=== PATIENT | male | born 1975 | race Asian ===

== ENCOUNTER 2016-06-05 09:34 | Observation (INO) | payer MEDICAID, OTHER ==
[~2016-06-05] VITALS: Ht 172.7 cm; Wt 78.4 kg
[2016-06-05] MEDS ORDERED: ONDANSETRON 4 MG INJ IV STA (10:38)
[2016-06-05] MEDS ORDERED: SOD CHLORIDE 0.9% 1,000 ML IV STA (10:38)
[2016-06-05] MEDS ORDERED: KETOROLAC 30 MG INJ IV STA (10:38)
--- NOTE | 2016-06-05 11:01 | RADRPT ---
PROCEDURE: XR Chest AP portable CLINICAL INDICATION: Abdominal pain TECHNIQUE: An AP portable radiograph of the chest was submitted. COMPARISON: None. FINDINGS: Support Hardware: None Cardiovascular: The cardiovascular silhouette appears unremarkable. Lung Romano: The lung romano appear clear with no nodule, alveolar infiltrate, for a interstitial pr ominence evident. Pleural Spaces: No pneumothorax or pleural effusion is identified. Osseous Structures: The osseous structures appear intact. Soft Tissues: The soft tissues appear unremarkable. IMPRESSION: Unremarkable portable chest. Physician Radha Date Time Electronically viewed and signed by Vivien Perkins Physician on 06/05/2016 11:00 RH/
[2016-06-05] MEDS ORDERED: ASPIRIN (EC) 325 MG TAB PO ONE (11:30)
[2016-06-05 11:53] LABS: ALBUMIN 3.8 g/dl (3.3-4.9); CHLORIDE 104 mmol/L (97-110); POTASSIUM 3.5 mmol/L (3.5-5.1); SODIUM 143 mmol/L (135-144)
[2016-06-05 11:56] LABS: ALANINE AMINOTRANSFERASE 55 IU/L (13-69); ALBUMIN/GLOBULIN RATIO 1.15; ALKALINE PHOSPHATASE 103 IU/L (42-121); ANION GAP 21 (8-16); ASPARTATE AMINO TRANSFERASE 36 IU/L (15-46); BILIRUBIN,INDIRECT 0.5 mg/dl (0-1.1); BILIRUBIN,TOTAL 0.5 mg/dl (0.2-1.3); BLOOD UREA NITROGEN 12 mg/dl (7-20); CALCIUM 7.9 mg/dl (8.4-10.2); CARBON DIOXIDE 22 mmol/L (21-31); GLUCOSE 136 mg/dl (70-220); TOTAL PROTEIN 7.1 g/dl (6.1-8.1)
[2016-06-05 12:08] LABS: TROPONIN-I < 0.012 ng/ml (0.00-0.12)
[2016-06-05 12:13] LABS: EOSINOPHILS % 0.3 % (0.0-7.0); HEMATOCRIT 44.3 % (42.0-52.0); HEMOGLOBIN 16.2 g/dl (14.0-18.0); LYMPHOCYTES % 18.9 % (15.0-51.0); MEAN CORPUSCULAR HEMOGLOBIN 30.1 pg (29.0-33.0); MEAN CORPUSCULAR HGB CONC 36.6 g/dl (32.0-37.0); MEAN CORPUSCULAR VOLUME 82.3 fl (82.0-101.0); MEAN PLATELET VOLUME 9.8 fl (7.4-10.4); MONOCYTES % 8.8 % (0.0-11.0); PLATELET COUNT 417 10^3/UL (140-440); RED BLOOD COUNT 5.38 10^6/ul (4.70-6.10); RED CELL DISTRIBUTION WIDTH 12.2 % (11.5-14.5); UNCORRECTED WBC 11.7 10^3/ul (4.8-10.8); WHITE BLOOD COUNT 11.7 10^3/ul (4.8-10.8)
[2016-06-05 12:14] LABS: BASOPHILS % 0.3 % (0.0-2.0); EOSINOPHILS # 0.3 10^3/ul (0.0-0.5); LYMPHOCYTES # 2.2 10^3/ul (0.8-2.9); NEUTROPHIL # 8.3 10^3/ul (1.6-7.5)
[2016-06-05 12:15] LABS: BASOPHIL # 0.4 10^3/ul (0.0-0.1)
--- NOTE | 2016-06-05 12:40 | ERA ---
ER Documentation Chief Complaint Date/Time DATE: 06/05/16 TIME: 12:38 Chief Complaint pt bib self with c/o ap for a few days and nausea, "had flu last wk" HPI 41-year-old male presents the emergency department complaining of chest discomfort. Patient states he had a flu last week. His flu seems to have gotten better, but over the last for 5 days he has had a nonspecific Discomfort in the center part of his chest. It makes him nauseous but does not significantly radiate. Today got somewhat worsened to the lower part of his abdomen. He reports no fevers, chills, sputum production, hemoptysis. His pain is persisted and he came to the emergency department for evaluation. Currently reports the pain is mild to moderate in the center part of his chest. ROS All systems reviewed and are negative except as per history of present illness. Allergies Allergies: Coded Allergies: No Known Allergy (Unverified , 06/05/16) PMhx/Soc Medical and Surgical Hx: pt denies Medical Hx, pt denies Surgical Hx Hx Alcohol Use: Yes (OCCASIONALLY) Hx Substance Use: No Hx Tobacco Use: No Smoking Status: Never smoker FmHx Noncontributory for chief complaint Physical Exam Vitals Vital Signs Date Time Temp Pulse Resp B/P Pulse Ox O2 Delivery O2 Flow Rate FiO2 06/05/16 09:37 98.3 106 18 135/84 98 Physical Exam GENERAL: The patient is well developed and appropriate for usual state of health in no apparent distress HEENT: Pupils equal, round, and reactive to light. EOMI. There is no scleral icterus. NECK: C-spine is soft and supple, there is no meningismus. There is no cervical lymphadenopathy. LUNGS: Clear to auscultation bilaterally. There are no rales, wheezes or rhonchi. HEART: Regular rate and rhythm, no murmurs, clicks, rubs or gallops. ABDOMEN: Soft, non-tender, non-distended. There are bowel sounds in all four quadrants. No rebound or guarding. EXTREMITIES: There is no peripheral cyanosis or edema. No focal swelling or erythema. NEURO: The patient moves all four extremities with 5/5 strength. Cranial nerves II - XII are intact. Normal gait. Alert and oriented SKIN: There is no apparent rash or petechiae. HEME/LYMPHATIC: There is no evidence of excessive bruising or lymphedema. PSYCHIATRIC: The patient does not appear anxious or depressed. Result Diagram: 06/05/16 1125 06/05/16 1125 Results 24 hrs Laboratory Tests Test 06/05/16 11:25 Alanine Aminotransferase (ALT/SGPT) 55IU/L Albumin 3.8g/dl Albumin/Globulin Ratio 1.15 Alkaline Phosphatase 103IU/L Anion Gap 21 Aspartate Amino Transf (AST/SGOT) 36IU/L Basophils # 0.410^3/ul Basophils % 0.3% Blood Urea Nitrogen 12mg/dl Calcium Level 7.9mg/dl Carbon Dioxide Level 22mmol/L Chloride Level 104mmol/L Creatinine 0.80mg/dl Direct Bilirubin 0.00mg/dl Eosinophils # 0.310^3/ul Eosinophils % 0.3% Globulin 3.30g/dl Glucose Level 136mg/dl Hematocrit 44.3% Hemoglobin 16.2g/dl Indirect Bilirubin 0.5mg/dl Lipase 164U/L Lymphocytes # 2.210^3/ul Lymphocytes % 18.9% Mean Corpuscular Hemoglobin 30.1pg Mean Corpuscular Hemoglobin Concent 36.6g/dl Mean Corpuscular Volume 82.3fl Mean Platelet Volume 9.8fl Monocytes # 1.010^3/ul Monocytes % 8.8% Neutrophils # 8.310^3/ul Neutrophils % 71.0% Nucleated Red Blood Cells # 0.010^3/ul Nucleated Red Blood Cells % 0.0/100WBC Platelet Count 01660^3/UL Potassium Level 3.5mmol/L Red Blood Count 5.3810^6/ul Red Cell Distribution Width 12.2% Sodium Level 143mmol/L Total Bilirubin 0.5mg/dl Total Protein 7.1g/dl Troponin I < 0.012ng/ml White Blood Count 11.710^3/ul Current Medications Medications (Trade) Dose Ordered Sig/Farideh Route PRN Reason Start Time Stop Time Status Last Admin Dose Admin Sodium Chloride (NS) 1,000 ml @ 1,000 mls/hr Q1H STAT IV 06/05/16 10:38 06/05/16 11:37 DC 06/05/16 11:33 Ondansetron HCl (Zofran Inj) 4 mg ONCE STAT IV 06/05/16 10:38 06/05/16 10:40 DC 06/05/16 11:33 Ketorolac Tromethamine (Toradol) 30 mg ONCE STAT IV 06/05/16 10:38 06/05/16 10:40 DC 06/05/16 11:33 Aspirin (Ecotrin) 325 mg ONCE ONCE PO 06/05/16 11:30 06/05/16 11:31 DC 06/05/16 12:02 Procedures/MDM Patient was taken to a room, seen and evaluated. Comfort measures were initiated. Diagnostic tests were ordered and reviewed. 3 LEAD RHYTHM STRIP: Normal sinus rhythm without ectopy EK lead EKG reviewed by myself: Normal Sinus Rhythm Normal [place] and intervals T-wave inversions are noted in the inferolateral leads. Impression: Ischemic appearing EKG RADIOLOGY: reviewed with the radiologist CONSULTATION: hospitalist was notified for admission REEVALUATION: Patient is remained hemodynamically stable MEDICAL DECISION MAKING: Patient presents with chest pain of uncertain etiology. Differential diagnosis considered includes acute myocardial infarction , pulmonary embolism, as well as vascular and pulmonary concerns. I have reviewed the patients clinical risk factors, EKG, lab studies and imaging. At this time, the patient's EKG is markedly abnormal and he has multiple risk factors for ischemic heart disease. Patient will require admission to the hospital for observation and monitoring and ruling out of [place]. Departure Diagnosis: Primary Impression: Chest pain Additional Impressions: Hypertension Diabetes LILLIANA MENSAH Jun 05, 2016 12:40
[2016-06-05 12:49] LABS: ADD UMIC YES; URINE BILIRUBIN (Dip) NEGATIVE (NEGATIVE); URINE BLOOD (Dip) NEGATIVE (NEGATIVE); URINE COLOR LT. YELLOW (YELLOW); URINE GLUCOSE (Dip) NEGATIVE (NEGATIVE); URINE KETONES (Dip) NEGATIVE (NEGATIVE); URINE LEUKOCYTE ESTERASE (Dip) NEGATIVE (NEGATIVE); URINE NITRITE (Dip) NEGATIVE (NEGATIVE); URINE TOTAL PROTEIN (Dip) 1+ (NEGATIVE); URINE UROBILINOGEN (Dip) 1.0 E.U./dL (0.1-1.0)
[2016-06-05 13:10] LABS: URINE RBCS NONE SEEN /HPF (0)
[2016-06-05] MEDS ORDERED: DOCUSATE SODIUM 100 MG CAP PO PRN (14:00)
[2016-06-05] MEDS ORDERED: NACL 0.9% 3 ML SYG IV SCH (14:00)
[2016-06-05] MEDS ORDERED: morphine 2 MG INJ IV PRN (14:00)
[2016-06-05] MEDS ORDERED: LORAZEPAM 2 MG INJ IV PRN (14:00)
[2016-06-05] MEDS ORDERED: hydrALAzine 20 MG INJ IV PRN (14:00)
[2016-06-05] MEDS ORDERED: ONDANSETRON 4 MG INJ IV PRN (14:00)
[2016-06-05] MEDS ORDERED: ALBUTEROL/IPRATROPIUM (NEB) 3 ML AMP HHN PRN (14:00)
[2016-06-05] MEDS ORDERED: NITROGLYCERIN (SL) 0.4 MG TAB SL PRN (14:00)
[2016-06-05] MEDS ORDERED: ACETAMINOPHEN 325 MG TAB PO PRN (14:00)
[2016-06-05] MEDS ORDERED: NA PHOSPHATE/BIPHOS 133 ML ENEMA PR PRN (14:00)
[2016-06-05] MEDS ORDERED: HYDROCODONE/APAP (5/325) TAB PO PRN (14:00)
[2016-06-05] MEDS ORDERED: MAGNESIUM HYDROXIDE 30ML CUP PO PRN (14:00)
[2016-06-05 16:21] LABS: CREATINE KINASE 211 IU/L (23-200)
[2016-06-05 16:33] LABS: CK-MB 0.76 ng/ml (0.0-2.4)
[2016-06-05 16:40] LABS: TROPONIN-I < 0.012 ng/ml (0.00-0.12)
[2016-06-05] MEDS: SOD CHLORIDE 0.45% 1,000 ML IV SCH (19:23)
[2016-06-05] MEDS ORDERED: GLUCOSE GEL 15 GRAM TUBE PO PRN ×2 (20:00)
[2016-06-05] MEDS ORDERED: GLUCOSE GEL 15 GRAM TUBE BUCCAL PRN (20:00)
[2016-06-05] MEDS ORDERED: GLUCAGON 1 MG INJ IM PRN (20:00)
[2016-06-05] MEDS ORDERED: DEXTROSE 50% 50 ML SYRINGE IV PRN ×2 (20:00)
[2016-06-05 20:03] VITALS: TEMP 97.6
[2016-06-05 20:44] LABS: CREATINE KINASE 167 IU/L (23-200)
[2016-06-05 20:54] LABS: CK-MB 0.74 ng/ml (0.0-2.4)
[2016-06-05 20:56] LABS: TROPONIN-I < 0.012 ng/ml (0.00-0.12)
[2016-06-05 20:58] VITALS: PULSE 66
[2016-06-05 21:00] VITALS: BP 118/68; PULSE 72; RESP 20
[2016-06-05] MEDS: INSULIN ASPART [NOVOLOG] 3 ML PEN SC SCH (21:00)
[2016-06-05] MEDS ORDERED: LOSA50TA6 PO (21:12)
[2016-06-05] MEDS ORDERED: AMLO2.5T78 PO (21:13)
[2016-06-05] MEDS ORDERED: ATOR20TA38 PO (21:13)
[2016-06-05] MEDS ORDERED: LINA5TAB PO (21:15)
[2016-06-05 21:18] VITALS: Ht 172.7 cm; Wt 78.4 kg
[2016-06-05] MEDS: HEPARIN 5,000 UNIT/0.5 ML SYG SC SCH (22:25)
[2016-06-06] VITALS (11 sets, daily range): BP systolic 111–136; BP diastolic 66–80; PULSE 63–77; RESP 18–20
[2016-06-06] MEDS: ACCUCHECK AT 2AM (Patients on SS coverage) XX SCH (02:00)
[2016-06-06] MEDS: SOD CHLORIDE 0.45% 1,000 ML IV SCH ×3 (03:18→23:24)
--- NOTE | 2016-06-06 03:40 | HP ---
DATE OF ADMISSION: 06/05/2016 CHIEF COMPLAINT: Chest pain. HISTORY OF PRESENT ILLNESS: A 41-year-old male with past medical history of hypertension and type 2 diabetes who has been having chest pain that began on Tuesday, so 6 days ago, about 2/10 in intensit y, nonradiating. Then it got worse over the week. Yesterday it became more severe, about 8/10 in i ntensity, again nonradiating. He had some nausea symptoms as well but no vomiting, no upper or lowe r GI bleeding, no fevers or chills. No headaches, dizziness, or loss of consciousness. No abdomina l pain. No shortness of breath. He became concerned and decided to come into the ER today. When priscilla liu came in, he had an EKG performed that showed some T-wave inversions in the inferior lateral leads and some LVH noted on the EKG. Troponin was negative, however. Apparently he has never had this ch est pain before. Again, as stated above, he apparently had smoking history. Actually, the patient denies any current smoking. He smoked when he was from age 16 to 19. PAST MEDICAL HISTORY: Stated above. ALLERGIES: NO KNOWN DRUG ALLERGIES. HOME MEDICATIONS: Unknown. PAST SURGICAL HISTORY: None. FAMILY HISTORY: Mother has hypertension. SOCIAL HISTORY: Again, social drinker but negative for current smoking or IV drug abuse. PHYSICAL EXAMINATION: VITAL SIGNS: T-max 98.3, pulse 106, respirations 18, blood pressure 135/84, saturating at 98% on ro om air. GENERAL: The patient is lying in bed, answering questions appropriately. No acute distress. HEENT: Pupils equal, round, reactive to light. Extraocular muscles intact. NECK: Supple, no thyromegaly. LUNGS: Clear to auscultation bilaterally. CARDIOVASCULAR: S1, S2 heard. No rubs or gallops. ABDOMEN: Soft, nontender, nondistended. Normal bowel sounds. MUSCULOSKELETAL: No lower extremity edema bilaterally. NEUROLOGIC: No focal deficits. LABORATORIES: WBC 11.7. The rest of the CBC is normal. Comprehensive metabolic panel is normal. Creatine kinase is a little high at 211. Troponin is negative x1. Lipase is normal as well. UA is negative nitrites, negative leukocyte esterase. Chest x-ray was unremarkable. ASSESSMENT AND PLAN: This is a 41-year-old male coming in with chest pain symptoms for the last 5 d ays, getting progressively worse, rule out acute coronary syndrome. 1. Chest pain. Again, his EKG did show some T-wave inversions in the inferior lateral leads. Othe rwise it was normal sinus rhythm. Troponin is negative. We will admit him to telemetry floor, rule out acute coronary syndrome, put him on aspirin, morphine, oxygen, and nitrates, trend his troponin s, check TSH, A1c, and lipid panel as well, and get a 2-D echocardiogram as well. 2. Type 2 diabetes. We will check an A1c and put him on sliding scale insulin. 3. History of hypertension. Blood pressure is stable. Continue current medications including hydr alazine p.r.n. 4. Gastrointestinal prophylaxis. He will be on PPI. 5. Deep venous thrombosis prophylaxis. Heparin subcu. Dictated By: OMAYRA ENCARNACION Conf#: [id number] DID#: [id number]
[2016-06-06] MEDS: PANTOPRAZOLE (EC) 40 MG TAB PO SCH (06:06)
[2016-06-06 07:09] LABS: CHOL/HDL RATIO 5.4 RATIO
[2016-06-06 07:23] LABS: THYROID STIMULATING HORMONE 1.45 MIU/L (0.465-4.680)
[2016-06-06] MEDS: INSULIN ASPART [NOVOLOG] 3 ML PEN SC SCH ×4 (08:00→20:14)
[2016-06-06 08:02] LABS: POTASSIUM 3.4 mmol/L (3.5-5.1)
[2016-06-06 08:04] LABS: CREATININE 0.88 mg/dl (0.61-1.24)
[2016-06-06 08:05] LABS: CALCIUM 7.7 mg/dl (8.4-10.2); PHOSPHORUS 2.6 mg/dl (2.5-4.9)
[2016-06-06 08:06] LABS: MAGNESIUM 2.1 mg/dl (1.7-2.5)
[2016-06-06] MEDS: HEPARIN 5,000 UNIT/0.5 ML SYG SC SCH ×2 (08:36→20:33)
[2016-06-06] MEDS ORDERED: POTASSIUM CHLORIDE (SR) 20 MEQ TAB PO STA (12:09)
--- NOTE | 2016-06-06 12:12 | PN ---
Date/Time of Note Date/Time of Note DATE: 06/06/16 TIME: 12:10 Assessment/Plan VTE Prophylaxis VTE Prophylaxis Intervention: heparin Lines/Catheters IV Catheter Type (from [facility]): Peripheral IV Urinary Cath still in place: No Assessment/Plan Chief Complaint/Hosp Course ASSESSMENT AND PLAN: 41-year-old male coming in with chest pain symptoms for the last 5 days, getting progressively worse, rule out acute coronary syndrome. 1. Chest pain - still present, but trop neg x 3. ECHO pending. Again, his EKG did show some T-wave inversions in the inferior lateral leads. Otherwise it was normal sinus rhythm. Troponin is negative - continue telemetry floor care, f/u CV rec's (pending) - aspirin, morphine, oxygen, and nitrates, trend his troponins, - f/u 2-D echocardiogram as well. 2. Type 2 diabetes. We will check an A1c and put him on sliding scale insulin. 3. History of hypertension. Blood pressure is stable. Continue current medications including hydralazine p.r.n. 4. Gastrointestinal prophylaxis. He will be on PPI. 5. Deep venous thrombosis prophylaxis. Heparin subcu. 6. high TG - start Tricor Problems: Subjective 24 Hr Interval Summary Free Text/Dictation Pt with some cp. Exam/Review of Systems Vital Signs Vitals Vital Signs Date Time Temp Pulse Resp B/P Pulse Ox O2 Delivery O2 Flow Rate FiO2 06/06/16 12:03 68 06/06/16 08:09 97.8 18 121/78 96 Room Air Intake and Output 06/05/16 06/05/16 06/06/16 15:00 23:00 07:00 Intake Total 1155 ml Output Total 425 ml Balance 730 ml Exam GENERAL: The patient is lying in bed, answering questions appropriately. No acute distress. HEENT: Pupils equal, round, reactive to light. Extraocular muscles intact. NECK: Supple, no thyromegaly. LUNGS: Clear to auscultation bilaterally. CARDIOVASCULAR: S1, S2 heard. No rubs or gallops. ABDOMEN: Soft, nontender, nondistended. Normal bowel sounds. MUSCULOSKELETAL: No lower extremity edema bilaterally. NEUROLOGIC: No focal deficits. Results Result Diagram: 06/05/16 1125 06/06/16 0530 Results 24 hrs Laboratory Tests Test 06/05/16 19:50 06/05/16 22:20 2/5/17 05:30 06/06/16 07:42 B-Type Natriuretic Peptide < 11 Creatine Kinase 167 Creatine Kinase Index 0.4 Creatinine Kinase MB (Mass) 0.74 Troponin I < 0.012 Bedside Glucose 135 108 Anion Gap 16 Blood Urea Nitrogen 10 Calcium Level 7.7 L Carbon Dioxide Level 24 Chloride Level 106 Cholesterol Level 82 L Cholesterol/HDL Ratio 5.4 Creatinine 0.88 Glucose Level 124 HDL Cholesterol 15 L Hemoglobin A1c 7.0 H LDL Cholesterol, Calculated 24 Magnesium Level 2.1 Phosphorus Level 2.6 Potassium Level 3.4 L Sodium Level 143 Thyroid Stimulating Hormone (TSH) 1.450 Triglycerides Level 214 H Test 06/06/16 11:36 Bedside Glucose 138 Medications Medications Current Medications Ondansetron HCl (Zofran Inj) 4 mg Q6H PRN IV NAUSEA AND/OR VOMITING; Start 06/05 at 14:00 Acetaminophen (Tylenol Tab) 650 mg Q6H PRN PO PAIN LEVEL 1-3 OR FEVER; Start at 14:00 Acetaminophen/ Hydrocodone Bitart ([place] (5/325)) 1 tab Q6H PRN PO MODERATE PAIN LEVEL 4-6; Start 06/05/16 at 14:00 Morphine Sulfate (morphine) 2 mg Q4H PRN IV SEVERE PAIN LEVEL 7-10; Start at 14:00 Docusate Sodium (Colace) 100 mg Q12H PRN PO CONSTIPATION; Start 06/05/16 at 14: 00 Magnesium Hydroxide (Milk Of Mag) 30 ml DAILY PRN PO CONSTIPATION; Start at 14:00 Sodium Biphosphate/ Sodium Phosphate (Fleet Enema) 133 ml DAILY PRN NE CONSTIPATION; Start 06/05/16 at 14:00 Pantoprazole (Protonix Tab) 40 mg DAILY@06 PO Last administered on 06/06/16 06: 06; Admin Dose 40 MG; Start 06/06/16 at 06:00 Heparin Sodium (Porcine) 5000 unit 5,000 unit Q12 SC Last administered on 08:36; Admin Dose 5,000 UNIT; Start 06/05/16 at 21:00 Sodium Chloride (1/2 NS) 1,000 ml @ 75 mls/hr [id number] IV Last administered on 06/05/16 19:23; Admin Dose 75 MLS/HR; Start 06/05/16 at 13:58 Lorazepam (Ativan) 0.5 mg Q6H PRN IV ANXIETY; Start 06/05/16 at 14:00 Hydralazine HCl (Apresoline) 10 mg Q6H PRN IV ELEVATED BLOOD PRESSURE; Start at 14:00 Nitroglycerin (Nitroglycerin (Sl Tab) 0.4 Mg) 1 tab Q5M PRN SL ANGINA; Start at 14:00 Diagnostic Test (Pha) (Accucheck) 1 ea 02 XX ; Start 06/06/16 at 02:00 Miscellaneous Information 1 ea NOTE XX ; Start 06/05/16 at 20:00 Glucose (Glutose) 15 gm Q15M PRN PO DECREASED GLUCOSE; Start 06/05/16 at 20:00 Glucose (Glutose) 22.5 gm Q15M PRN PO DECREASED GLUCOSE; Start 06/05/16 at 20:00 Dextrose (D50w Syringe) 25 ml Q15M PRN IV DECREASED GLUCOSE; Start 06/05/16 at 20:00 Dextrose (D50w Syringe) 50 ml Q15M PRN IV DECREASED GLUCOSE; Start 06/05/16 at 20:00 Glucagon (Glucagen) 1 mg Q15M PRN IM DECREASED GLUCOSE; Start 06/05/16 at 20:00 Glucose (Glutose) 15 gm Q15M PRN BUCCAL DECREASED GLUCOSE; Start 06/05/16 at 20: 00 OMAYRA POST Jun 06, 2016 12:12
[2016-06-06 13:43] LABS: BASOPHILS % 0.3 % (0.0-2.0); EOSINOPHILS # 0.1 10^3/ul (0.0-0.5); EOSINOPHILS % 1.8 % (0.0-7.0); HEMATOCRIT 40.5 % (42.0-52.0); LYMPHOCYTES # 2.6 10^3/ul (0.8-2.9); LYMPHOCYTES % 42.6 % (15.0-51.0); MEAN CORPUSCULAR HEMOGLOBIN 30.3 pg (29.0-33.0); MEAN CORPUSCULAR HGB CONC 34.5 g/dl (32.0-37.0); MEAN PLATELET VOLUME 8.5 fl (7.4-10.4); MONOCYTE # 0.5 10^3/ul (0.3-0.9); MONOCYTES % 8.1 % (0.0-11.0); NEUTROPHIL # 2.9 10^3/ul (1.6-7.5); NEUTROPHILS % 47.2 % (39.0-77.0); PLATELET COUNT 332 10^3/UL (140-440); RED CELL DISTRIBUTION WIDTH 12.8 % (11.5-14.5); UNCORRECTED WBC 6.1 10^3/ul (4.8-10.8); WHITE BLOOD COUNT 6.1 10^3/ul (4.8-10.8)
[2016-06-06 13:44] LABS: CONDITION 1
--- NOTE | 2016-06-06 19:29 | RADRPT ---
Echocardiogram Report Patient Name: ANITA CALLES Gender: Male Date: 1975 Study Date: 06-Jun-2016 Chief Engineering Division: [facility] Location: E Ref. Physician: OMAYRA POST Quality: Adequate Procedures: Transthoracic echocardiogram with complete 2D, M-Mode, and doppler examination. Indications: Chest Pain. 2D/M Mode Doppler Measurement Value Normal Ranges Measurement Value Normal Ranges AoR Diam MM 3.0 cm AV Peak Shemar 1.0 m/sec ACS MM 1.8 cm AV Peak PG 4.4 mmHg LVIDd 2D 4.5 3.5 - 5.6 cm LVOT Peak Shemar 0.7 m/sec LVIDs 2D 2.9 2.1 - 4.1 cm LVOT Peak PG 1.8 mmHg LVPWd 2D 0.8 0.6 - 1.1 cm MV E Peak She[place] 0.9 m/sec IVSd 2D 0.9 0.6 - 1.1 cm MV A Peak She[place] 0.5 m/sec EDV 2D 90.6 cm3 MV E/A 1.9 ESV 2D 24.4 cm3 MV Decel Time 183 msec LA Dimen 2D 2.8 2.3 - 4.0 cm MV Decel [place] 5 MV E/A 1.9 PV Peak She[place] 1.0 m/sec PV Peak PG 4.0 mmHg Findings Left Ventricle: Normal left ventricular systolic function. Normal left ventricular cavity size. Normal left ventricular wall thickness. Ejection fraction is visually estimated at 55 %. Tissue Doppler/Mitral Doppler indices are within normal limits. E/E`=6. Right Ventricle: Normal right ventricular size. Normal right ventricular systolic function. Left Atrium: The left atrium is normal in size. Right Atrium: The right atrium is normal in size. Atrial Septum: Normal atrial septum. Mitral Valve: Normal appearance of the mitral valve. No mitral valve regurgitation is seen. Aortic Valve: No significant aortic stenosis or insufficiency. Normal trileaflet aortic valve structure. Tricuspid Valve: Normal appearance and function of the tricuspid valve with trace physiologic regurgitation. Unable to obtain RVSP due to minimal presence of tricuspid regurgitation. Pulmonic Valve: Normal pulmonic valve appearance. There is trace pulmonic regurgitation. Pericardium: Normal pericardium with no significant pericardial effusion. Aorta: Normal aortic root. IVC: Normal size and normal respiratory collapse consistent with normal right atrial pressure. Pulmonary Artery: Normal pulmonary artery size. Conclusions 1.Normal left ventricular systolic function. Normal left ventricular cavity size. Normal left ventricular wall thickness. Ejection fraction is visually estimated at 55 %. 2.Normal right ventricular size. Normal right ventricular systolic function. 3.Normal appearance of the mitral valve. No mitral valve regurgitation is seen. 4.No significant aortic stenosis or insufficiency. Normal trileaflet aortic valve structure. 5.Normal appearance and function of the tricuspid valve with trace physiologic regurgitation. Unable to obtain RVSP due to minimal presence of tricuspid regurgitation. 6.Normal pericardium with no significant pericardial effusion. Electronically Signed By: Mayco Smalls 06-Jun-2016 19:28:35 -0800 Patient Name: ANITA CALLES Study Date: 06-Jun-2016 [id number]
--- NOTE | 2016-06-06 19:42 | CONS ---
Date/Time of Note Date/Time of Note DATE: 06/06/16 TIME: 19:37 Assessment/Plan Assessment/Plan Additional Assessment/Plan Atypical chest pain with hypertension, diabetes and hyperlipidemia he has been ruled out for ACS with serial negative troponin's echo shows no segmental wall motion abnormality Ptient c/o persistent on/off chest pain Recommend Domi scan considering his risk factors Continue Metoprolol Continue fenofibrate Continue Insulin Continue GI and DVT prophylaxis Consultation Date/Type/Reason Admit Date/Time Jun 05, 2016 at 12:48 Initial Consult Date Exam/Review of Systems Vital Signs Vitals Vital Signs Date Time Temp Pulse Resp B/P Pulse Ox O2 Delivery O2 Flow Rate FiO2 06/06/16 16:51 97.9 71 18 126/77 99 Room Air Intake and Output 06/05/16 06/05/16 06/06/16 15:00 23:00 07:00 Intake Total 1155 ml Output Total 425 ml Balance 730 ml Exam Constitutional: alert, oriented, well developed Head: atraumatic, normocephalic Neck: non-tender, supple Respiratory: clear to auscultation Cardiovascular: regular rate and rhythm Gastrointestinal: nl liver, spleen, non-tender, soft Extremities: normal pulses Results Result Diagram: 06/06/16 0530 06/06/16 0530 Results 24 hrs Laboratory Tests Test 06/05/16 19:50 06/05/16 22:20 06/06/16 05:30 06/06/16 07:42 B-Type Natriuretic Peptide < 11 Creatine Kinase 167 Creatine Kinase Index 0.4 Creatinine Kinase MB (Mass) 0.74 Troponin I < 0.012 Bedside Glucose 135 108 Anion Gap 16 Basophils # 0.0 Basophils % 0.3 Blood Urea Nitrogen 10 Calcium Level 7.7 L Carbon Dioxide Level 24 Chloride Level 106 Cholesterol Level 82 L Cholesterol/HDL Ratio 5.4 Creatinine 0.88 Eosinophils # 0.1 Eosinophils % 1.8 Glucose Level 124 HDL Cholesterol 15 L Hematocrit 40.5 L Hemoglobin 14.0 Hemoglobin A1c 7.0 H LDL Cholesterol, Calculated 24 Lymphocytes # 2.6 Lymphocytes % 42.6 Magnesium Level 2.1 Mean Corpuscular Hemoglobin 30.3 Mean Corpuscular Hemoglobin Concent 34.5 Mean Corpuscular Volume 88.0 Mean Platelet Volume 8.5 Monocytes # 0.5 Monocytes % 8.1 Neutrophils # 2.9 Neutrophils % 47.2 Nucleated Red Blood Cells # 0.0 Nucleated Red Blood Cells % 0.0 Phosphorus Level 2.6 Platelet Count 332 # Potassium Level 3.4 L Red Blood Count 4.60 L Red Cell Distribution Width 12.8 Sodium Level 143 Thyroid Stimulating Hormone (TSH) 1.450 Triglycerides Level 214 H White Blood Count 6.1 # Test 06/06/16 11:36 06/06/16 17:45 Bedside Glucose 138 128 Medications Medications Current Medications Ondansetron HCl (Zofran Inj) 4 mg Q6H PRN IV NAUSEA AND/OR VOMITING; Start 06/05 at 14:00 Acetaminophen (Tylenol Tab) 650 mg Q6H PRN PO PAIN LEVEL 1-3 OR FEVER; Start at 14:00 Acetaminophen/ Hydrocodone Bitart ([place] (5/325)) 1 tab Q6H PRN PO MODERATE PAIN LEVEL 4-6; Start 06/05/16 at 14:00 Morphine Sulfate (morphine) 2 mg Q4H PRN IV SEVERE PAIN LEVEL 7-10; Start at 14:00 Docusate Sodium (Colace) 100 mg Q12H PRN PO CONSTIPATION; Start 06/05/16 at 14: 00 Magnesium Hydroxide (Milk Of Mag) 30 ml DAILY PRN PO CONSTIPATION; Start at 14:00 Sodium Biphosphate/ Sodium Phosphate (Fleet Enema) 133 ml DAILY PRN [place] CONSTIPATION; Start 06/05/16 at 14:00 Pantoprazole (Protonix Tab) 40 mg DAILY@06 PO Last administered on 06/06/16 06: 06; Admin Dose 40 MG; Start 06/06/16 at 06:00 Heparin Sodium (Porcine) 5000 unit 5,000 unit Q12 SC Last administered on 08:36; Admin Dose 5,000 UNIT; Start 06/05/16 at 21:00 Sodium Chloride (1/2 NS) 1,000 ml @ 75 mls/hr [id number] IV Last administered on 06/06/16 16:53; Admin Dose 75 MLS/HR; Start 06/05/16 at 13:58 Lorazepam (Ativan) 0.5 mg Q6H PRN IV ANXIETY; Start 06/05/16 at 14:00 Hydralazine HCl (Apresoline) 10 mg Q6H PRN IV ELEVATED BLOOD PRESSURE; Start at 14:00 Nitroglycerin (Nitroglycerin (Sl Tab) 0.4 Mg) 1 tab Q5M PRN SL ANGINA; Start at 14:00 Diagnostic Test (Pha) (Accucheck) 1 ea 02 XX ; Start 06/06/16 at 02:00 Miscellaneous Information 1 ea NOTE XX ; Start 06/05/16 at 20:00 Glucose (Glutose) 15 gm Q15M PRN PO DECREASED GLUCOSE; Start 06/05/16 at 20:00 Glucose (Glutose) 22.5 gm Q15M PRN PO DECREASED GLUCOSE; Start 06/05/16 at 20:00 Dextrose (D50w Syringe) 25 ml Q15M PRN IV DECREASED GLUCOSE; Start 06/05/16 at 20:00 Dextrose (D50w Syringe) 50 ml Q15M PRN IV DECREASED GLUCOSE; Start 06/05/16 at 20:00 Glucagon (Glucagen) 1 mg Q15M PRN IM DECREASED GLUCOSE; Start 06/05/16 at 20:00 Glucose (Glutose) 15 gm Q15M PRN BUCCAL DECREASED GLUCOSE; Start 06/05/16 at 20: 00 Fenofibrate (Tricor) 48 mg DAILY PO ; Start 06/07/16 at 09:00 SYLVESTER HENSON M.D. Jun 06, 2016 19:41
[2016-06-06] MEDS: METOPROLOL 25 MG TAB GTB SCH (20:32)
--- NOTE | 2016-06-06 20:35 | CONS ---
DATE OF ADMISSION: 06/05/2016 DATE OF CONSULTATION: 06/05/2016 REASON FOR CONSULTATION: Chest pain. HISTORY OF PRESENT ILLNESS: The patient is a 41-year-old gentleman who comes in with ongoing chest pain for the past 5 to 6 days associated with shortness of breath, dizziness, palpitations but denie s any syncope. Denies nausea, vomiting. Denies fever, chills or rigors. Denies a history of myoca rdial infarction. PAST MEDICAL HISTORY: Significant for hypertension, dyslipidemia, diabetes mellitus. SOCIAL HISTORY: No smoking, alcohol or recreational drugs. ALLERGIES: NONE. CURRENT MEDICATIONS: Include: 1. Fenofibrate. 2. Metoprolol. 3. Protonix. 4. Heparin. 5. Insulin. REVIEW OF SYSTEMS: Unremarkable except that mentioned in the HPI. PHYSICAL EXAMINATION: VITAL SIGNS: Temperature is 97.8, heart rate of 72, blood pressure 118/68 mmHg, breathing at 20, sa turating 97%. GENERAL: The patient awake, alert, in no apparent distress. NECK: No JVD or carotid bruit. CARDIOVASCULAR: Regular rate and rhythm. No murmur, rub or gallop. CHEST: Clear to auscultation. ABDOMEN: Soft. Bowel sounds are present. There is no organomegaly. EXTREMITIES: No pedal edema. Pedal pulses felt bilaterally. Review of 12-lead EKG shows normal sinus rhythm with a ventricular rate of 90 beats per minute with normal AL, normal QRS and normal QT intervals with T-wave inversion in lead II, III, aVF and V3 to V 6. Chest x-ray shows no congestion or infiltrate. LABORATORY DATA: WBC 11.7, hemoglobin 16.2, hematocrit 44.3 with platelets of 417. Troponin x2 is negative. Sodium 143, potassium 3.5, chloride 104, CO2 22, BUN 12, creatinine 0.8. TSH 1.45. Total cholesterol 82, triglycerides 214, LDL 24, HDL 58. ASSESSMENT AND PLAN: A 41-year-old gentleman with atypical chest pain with hypertension, dyslipidem ia and diabetes mellitus. Review of 12-lead EKG shows sinus rhythm with T-wave inversion in leads I I, III, aVF and V3 to V6 with ____, but he has been ruled out for acute coronary syndrome with seria l negative troponins. RECOMMENDATIONS: 1. Recommend echo to assess for segmental wall motion abnormality and assess for systolic function and rule out any pericardial disease. 2. Lexiscan to rule out for reversible ischemia considering his risk factors and atypical presentat ion with EKG changes consistent with ischemia. 3. Started on metoprolol. 4. Continue aspirin. 5. Continue fenofibrate. 6. Continue insulin. 7. Continue GI and DVT prophylaxis. Dictated By: SYLVESTER HENSON MD SR/[place] Conf#: [id number] DID#: [id number]
[2016-06-07] VITALS (11 sets, daily range): BP systolic 100–144; BP diastolic 64–89; PULSE 62–73; RESP 18–20
[2016-06-07] MEDS: ACCUCHECK AT 2AM (Patients on SS coverage) XX SCH (02:00)
[2016-06-07] MEDS: SOD CHLORIDE 0.45% 1,000 ML IV SCH (05:27)
[2016-06-07] MEDS: PANTOPRAZOLE (EC) 40 MG TAB PO SCH (05:34)
[2016-06-07] MEDS: INSULIN ASPART [NOVOLOG] 3 ML PEN SC SCH ×4 (08:00→18:05)
[2016-06-07] MEDS: HEPARIN 5,000 UNIT/0.5 ML SYG SC SCH (08:58)
[2016-06-07] MEDS: FENOFIBRATE 48 MG TAB PO SCH ×2 (08:59→13:58)
[2016-06-07] MEDS: METOPROLOL 25 MG TAB GTB SCH ×2 (08:59→13:57)
[2016-06-07 10:23] LABS: BASOPHILS % 0.6 % (0.0-2.0); EOSINOPHILS # 0.1 10^3/ul (0.0-0.5); EOSINOPHILS % 1.4 % (0.0-7.0); HEMATOCRIT 43.2 % (42.0-52.0); HEMOGLOBIN 14.9 g/dl (14.0-18.0); LYMPHOCYTES # 2.4 10^3/ul (0.8-2.9); MEAN CORPUSCULAR HEMOGLOBIN 30.2 pg (29.0-33.0); MEAN CORPUSCULAR HGB CONC 34.6 g/dl (32.0-37.0); MEAN CORPUSCULAR VOLUME 87.3 fl (82.0-101.0); MEAN PLATELET VOLUME 8.4 fl (7.4-10.4); MONOCYTE # 0.3 10^3/ul (0.3-0.9); MONOCYTES % 5.3 % (0.0-11.0); NEUTROPHIL # 2.6 10^3/ul (1.6-7.5); NEUTROPHILS % 48.7 % (39.0-77.0); PLATELET COUNT 357 10^3/UL (140-440); RED BLOOD COUNT 4.95 10^6/ul (4.70-6.10); RED CELL DISTRIBUTION WIDTH 12.9 % (11.5-14.5); UNCORRECTED WBC 5.4 10^3/ul (4.8-10.8); WHITE BLOOD COUNT 5.4 10^3/ul (4.8-10.8)
[2016-06-07 10:26] LABS: CONDITION 1
[2016-06-07 10:45] LABS: POTASSIUM 3.9 mmol/L (3.5-5.1)
[2016-06-07 10:47] LABS: CREATININE 0.83 mg/dl (0.61-1.24)
[2016-06-07 10:48] LABS: CALCIUM 8.7 mg/dl (8.4-10.2)
[2016-06-07] MEDS ORDERED: REGADENOSON 0.4 MG/5 ML SYG ONE (11:25)
--- NOTE | 2016-06-07 12:29 | CONS ---
Date/Time of Note Date/Time of Note DATE: 06/07/16 TIME: 12:18 Assessment/Plan Assessment/Plan Chief Complaint/Hosp Course IMp: 1. Chest pain-negative troponin x 3 2.HTN 3.HL 4.Abnl ecg 5.DM Recc: -Tle -Continue BB -Contijue tricor -Lexiscan stress test today Problems: Consultation Date/Type/Reason Admit Date/Time Jun 05, 2016 at 12:48 Initial Consult Date 06/06/2016 Type of Consultation: Cardiology Reason for Consultation Chest pain Referring Provider: MARCY GORMAN MD Exam/Review of Systems Vital Signs Vitals Vital Signs Date Time Temp Pulse Resp B/P Pulse Ox O2 Delivery O2 Flow Rate FiO2 06/07/16 08:46 67 06/07/16 08:00 97.9 18 126/79 99 Room Air Intake and Output 06/06/16 06/06/16 06/07/16 15:00 23:00 07:00 Intake Total 360 ml 1760 ml 1150 ml Balance 360 ml 1760 ml 1150 ml Exam Review of Systems: CONSTITUTIONAL: No fevers, chills. PULMONARY: No sob CARDIOVASCULAR: Intermittent chest pain GASTROINTESTINAL: No nausea/vomiting. GENITOURINARY: No hematuria/dysuria. MUSCULOSKELETAL: No myagias/arthalgias. PSYCHIATRIC: The patient denies depression. NEUROLOGIC: No weakness Constitutional: alert, oriented Psych: no complaints Head: normocephalic ENMT: mucosa pink and moist Neck: jvd (8-9 cm water), supple Respiratory: clear to auscultation Cardiovascular: regular rate and rhythm Gastrointestinal: non-tender, soft Musculoskeletal: muscle tone (normal) Extremities: edema (none) Neurological: other Results Result Diagram: 06/07/1633 06/07/16 0933 Results 24 hrs Laboratory Tests Test 06/06/16 17:45 06/06/16 20:14 06/07/16 08:46 06/07/16 09:33 Bedside Glucose 128 111 120 Anion Gap 19 H Basophils # 0.0 Basophils % 0.6 Blood Urea Nitrogen 8 Calcium Level 8.7 Carbon Dioxide Level 26 Chloride Level 104 Creatinine 0.83 Eosinophils # 0.1 Eosinophils % 1.4 Glucose Level 120 Hematocrit 43.2 Hemoglobin 14.9 Lymphocytes # 2.4 Lymphocytes % 44.0 Mean Corpuscular Hemoglobin 30.2 Mean Corpuscular Hemoglobin Concent 34.6 Mean Corpuscular Volume 87.3 Mean Platelet Volume 8.4 Monocytes # 0.3 Monocytes % 5.3 Neutrophils # 2.6 Neutrophils % 48.7 Nucleated Red Blood Cells # 0.0 Nucleated Red Blood Cells % 0.0 Platelet Count 357 Potassium Level 3.9 Red Blood Count 4.95 Red Cell Distribution Width 12.9 Sodium Level 145 H White Blood Count 5.4 Medications Medications Current Medications Ondansetron HCl (Zofran Inj) 4 mg Q6H PRN IV NAUSEA AND/OR VOMITING; Start 06/05 at 14:00 Acetaminophen (Tylenol Tab) 650 mg Q6H PRN PO PAIN LEVEL 1-3 OR FEVER; Start at 14:00 Acetaminophen/ Hydrocodone Bitart (Wells (5/325)) 1 tab Q6H PRN PO MODERATE PAIN LEVEL 4-6; Start 06/05/16 at 14:00 Morphine Sulfate (morphine) 2 mg Q4H PRN IV SEVERE PAIN LEVEL 7-10; Start at 14:00 Docusate Sodium (Colace) 100 mg Q12H PRN PO CONSTIPATION; Start 06/05/16 at 14: 00 Magnesium Hydroxide (Milk Of Mag) 30 ml DAILY PRN PO CONSTIPATION; Start at 14:00 Sodium Biphosphate/ Sodium Phosphate (Fleet Enema) 133 ml DAILY PRN OK CONSTIPATION; Start 06/05/16 at 14:00 Pantoprazole (Protonix Tab) 40 mg DAILY@06 PO Last administered on 06/07/16 05: 34; Admin Dose 40 MG; Start 06/06/16 at 06:00 Heparin Sodium (Porcine) 5000 unit 5,000 unit Q12 SC Last administered on 08:58; Admin Dose 5,000 UNIT; Start 06/05/16 at 21:00 Sodium Chloride (1/2 NS) 1,000 ml @ 75 mls/hr [id number] IV Last administered on 06/06/16 23:24; Admin Dose 75 MLS/HR; Start 06/05/16 at 13:58 Lorazepam (Ativan) 0.5 mg Q6H PRN IV ANXIETY; Start 06/05/16 at 14:00 Hydralazine HCl (Apresoline) 10 mg Q6H PRN IV ELEVATED BLOOD PRESSURE; Start at 14:00 Nitroglycerin (Nitroglycerin (Sl Tab) 0.4 Mg) 1 tab Q5M PRN SL ANGINA; Start at 14:00 Diagnostic Test (Pha) (Accucheck) 1 ea 02 XX ; Start 06/06/16 at 02:00 Miscellaneous Information 1 ea NOTE XX ; Start 06/05/16 at 20:00 Glucose (Glutose) 15 gm Q15M PRN PO DECREASED GLUCOSE; Start 06/05/16 at 20:00 Glucose (Glutose) 22.5 gm Q15M PRN PO DECREASED GLUCOSE; Start 06/05/16 at 20:00 Dextrose (D50w Syringe) 25 ml Q15M PRN IV DECREASED GLUCOSE; Start 06/05/16 at 20:00 Dextrose (D50w Syringe) 50 ml Q15M PRN IV DECREASED GLUCOSE; Start 06/05/16 at 20:00 Glucagon (Glucagen) 1 mg Q15M PRN IM DECREASED GLUCOSE; Start 06/05/16 at 20:00 Glucose (Glutose) 15 gm Q15M PRN BUCCAL DECREASED GLUCOSE; Start 06/05/16 at 20: 00 Fenofibrate (Tricor) 48 mg DAILY PO ; Start 06/07/16 at 09:00 Metoprolol Tartrate (Lopressor) 25 mg BID GTB Last administered on 06/06/16t 20: 32; Admin Dose 25 MG; Start 06/06/16 at 21:00 MARIE RODRIGUEZ Jun 07, 2016 12:28
--- NOTE | 2016-06-07 14:45 | RADRPT ---
PROCEDURE: Lexiscan myocardial perfusion study CLINICAL INDICATION: 41 -year-old patient complaining of chest pain. TECHNIQUE: Lexiscan 0.4 mg intravenously separate acquisition gated myocardial perfusion SPECT usi ng Tc 99m Myoview 30.2 mCi intravenously at stress and Tc-99m Myoview, 9.6 mCi intravenously at rest was performed using the rest/stress sequence. Poststress Myoview SPECT images were obtained in the supine position. COMPARISON: No prior studies. FINDINGS: Perfusion images reveal no evidence of perfusion defects. Lexiscan post stress gated SPECT images demonstrate no wall motion abnormalities. IMPRESSION: 1. No evidence of perfusion defects. 2. No wall motion abnormalities. 3. The left ventricle ejection fraction at stress is 68%. A call report was made to Dr. Christian at 02:44 p.m. on June 07, 2016. RPTAT: HH .Madelyn Santana MD, Date Time Electronically viewed and signed by .Madelyn Santana MD, on 06/07/2016 14:45 .L/
[2016-06-07] MEDS ORDERED: NIT4 SL (15:27)
[2016-06-07] MEDS ORDERED: METO-448 GTB (15:27)
[2016-06-07] MEDS ORDERED: FENO48TA4 PO (15:27)
--- NOTE | 2016-06-07 15:51 | PDOCDIS ---
Discharge Instructions DIAGNOSIS Discharge Diagnosis: Chest pain CONDITION Patient Condition: Stable HOME CARE INSTRUCTIONS: Diet Instructions: 2gm NaSpecial Diet: Carb Controlled Diet ACTIVITY: Activity Restrictions: Slowly Increase Activity Rest between Activity Avoid heavy lifting FOLLOW UP/APPOINTMENTS Appointments follow up with primary care physician in one week. Dr. Christian in two weeks Office Address: [address] [place] [address] Office Office Balance Bridge Inspector: Isaura Rodriguez Status: Active Department: Medicine OTHER ORDERS: Other Orders: Chest pain - not Acute coronary syndrome - continue with regular work. if chest pain comes back, please go to the ED for further evaluation and treatment. Continue with aspirin, BB scheduled , and NTG SL as needed DAVID BAXTER MD Jun 07, 2016 15:50
--- NOTE | 2016-06-07 17:16 | CARRPT ---
DATE OF PROCEDURE: 06/06/2016 PROCEDURE: Lexiscan Cardiolite stress test, electrocardiogram portion. REASON FOR STRESS TESTING: Chest pain, assess for ischemia. BASELINE VITAL SIGNS AND ELECTROCARDIOGRAM: Pulse 66, blood pressure 157/82. Electrocardiogram rev eals normal sinus rhythm, rate 84, normal axis, normal intervals with T-wave flattening, inferior an d lateral leads. PROCEDURE: The patient underwent standard Lexiscan infusion protocol over 10 seconds followed by ra diolabeled tracer. The patient's test was stopped due to completion of protocol. Maximal achieved blood pressure during the test 189/87. Maximum heart rate during the test 110. ELECTROCARDIOGRAM FINDINGS: During Lexiscan infusion, the patient developed biphasic T-wave abnorma lities inferior and laterally and anteriorly which returned to normal during recovery. No documente d PVCs. SYMPTOMS: The patient had no complaints of chest pain or shortness of breath during stress testing. IMPRESSION: 1. Lexiscan-induced ST and T-wave changes that are concerning for but nondiagnostic for cardiac isc hemia. 2. Complaints of shortness of breath during stress testing. No chest pain. 3. No documented premature ventricular contractions during stress test. 4. Report of nuclear images to follow in separate dictation. Dictated By: MARIE CUENCA/[place] Conf#: [id number] DID#: [id number] CC: OMAYRA POST;*EndCC*
--- NOTE | 2016-06-08 03:48 | DS ---
DATE OF ADMISSION: 06/05/2016 DATE OF DISCHARGE: 06/07/2016 DISCHARGE DIAGNOSES: 1. Chest pain, acute coronary syndrome ruled out. 2. Type 2 diabetes. 3. Essential hypertension. HOSPITAL COURSE: This is a pleasant 41-year-old male with a past medical history of essential hyper tension and type 2 diabetes who has been having chest pain since Tuesday, so a total of 6 days prior to admission. He was admitted to telemetry for further evaluation and treatment. Cardiology was co nsulted at this time. Initial laboratory finding that was positive was a WBC of 11.7, currently 5.4 . H and H and platelets have been stable. Chemistry initially had shown an anion gap of 21 and erin cium 7.9. Troponins x3 were negative. He had a sodium 145, potassium 3.9, chloride 104, carbon sharon xide 26, anion gap 19, BUN of 8, creatinine 0.83, glucose 120, calcium 8.7, hemoglobin A1c 7. Other lucia, the patient had a negative UA. Initial imaging done was a chest x-ray that showed an unremark able portable chest x-ray. He had a nuclear stress test which was negative at that time and showed 1. No evidence of perfusion defects. 2. No wall motion abnormalities. 3. The left ventricle ejection fraction at stress is at 68%. He had a 2D echocardiogram showin. Normal left ventricular systolic function, normal left ventricular cavity size, normal left vent ricular wall thickness, ejection fraction visually estimated at 55%. 2. Normal right ventricular size, normal right ventricular systolic function. 3. Normal appearance of mitral valve. No mitral valve regurgitation is seen. 4. No significant aortic stenosis or insufficiency. Normal trileaflet aortic valve structure. 5. Normal appearance and function of the tricuspid valve with trace physiological regurgitation, un able to obtain RVSP due to minimal presence of tricuspid regurgitation. 6. Normal pericardium, no significant pericardial effusion. On the day of discharge, the patient's overall chest pain has resolved. Vital signs have been stable. I spoke to the patient clearly abo ut his medications that he now has to start and continue with including aspirin and metoprolol at th is time. He understood and agreed with the care plan. DISPOSITION: Home. CONDITION: Stable. DISCHARGE MEDICATIONS: Include 1. Fenofibrate 40 mg p.o. every day. 2 Lopressor 25 mg p.o. b.i.d. 3. Nitrostat 1 tab sublingual q. 5 p.r.n. for angina. 4. Atorvastatin 20 mg p.o. at bedtime. 5. Tradjenta 5 mg p.o. daily. 6. Losartan 50 mg p.o. daily. FOLLOWUP: The patient will follow up with his primary care physician in 1 week. He will follow up with Dr. Christian in his office within 2 weeks. The patient and consultants were made aware of this and agree with the plan. COORDINATION OF DISCHARGE: Greater than 35 minutes. Dictated By: DAVID KRUEGER/[place] Conf#: [id number] DID#: [id number]
== END 2016-06-07 18:12 | disposition home or self-care (01) ==
LOC: FTE 09:34 → MS4 12:48 → UNDOADMOB 12:48 → MS4 06-06
PROVIDERS: ADMIT Hospitalist; ATTEND Hospitalist
DX: R07.89 Other chest pain (principal); E11.9 Type 2 diabetes mellitus without complications; I10 Essential (primary) hypertension; E78.5 Hyperlipidemia, unspecified
CPT/HCPCS: 71010; 78452; 80048; 80053; 80061; 81001; 82550; 82553; 82962; 83036; 83690; 83735; 83880; 84100; 84439; 84443; 84484; 85025; 93005; 93017; 93306; 96361; 96372; 96374; 96375; A9500; A9505; J1644; J1815; J1885; J2405; J2785; J7030; Z7500; Z7502; Z7610; 81003; G0378

== ENCOUNTER 2018-10-04 08:21 | Emergency (ER) | payer MEDICAID ==
[~2018-10-04] VITALS: Ht 175.3 cm; Wt 79.0 kg
[~2018-10-04 08:21] MED LIST: ATOR20TA38 PO; FENO48TA4 PO; LINA5TAB PO; LOSA50TA14 PO; METO-448 GTB; NITR0.4T39 SL
[2018-10-04 08:27] VITALS: Ht 175.3 cm; Wt 79.0 kg
[2018-10-04 09:50] VITALS: BP 136/95; PULSE 71; RESP 18
--- NOTE | 2018-10-04 09:54 | ERD ---
ER Documentation Chief Complaint Chief Complaint crush injury @ right thumb ( gangrene) x 7 days HPI This is a 43-year-old male who presents to the emergency room for evaluation of a right thumb crush injury. The patient states that several days ago he slammed his thumb in a door. He has a large 100% subungual hematoma with swelling and bruising to the cuticle space. Patient denies any significant pain or fevers. He went to his primary care physician who was concerned that there may be gangrene. He is a diabetic. No fevers or chills. They started him on Augmen tin and sent up to the emergency room for further evaluation. He denies any fevers or chills, again only is very mild pain noted. He is right-hand dominant. ROS All systems reviewed and are negative except as per history of present illness. Medications Home Meds Active Scripts Nitroglycerin* (Nitrostat*) 0.4 Mg Tab.subl, 1 TAB SL Q5M PRN for ANGINA for 30 Days, #15 Prov:DAVID BAXTER MD 06/07/16 Metoprolol Tartrate* (Lopressor*) 25 Mg Tab, 25 MG GTB BID for 30 Days, #60 TAB Prov:DAVID BAXTER MD 06/07/16 Fenofibrate Nanocrystallized* (Fenofibrate*) 48 Mg Tablet, 48 MG PO DAILY for 30 Days, #30 TAB Prov:DAVID BAXTER MD 06/07/16 Reported Medications Linagliptin (TRADJENTA) 5 Mg Tablet, 5 MG PO DAILY, TAB 06/05/16 Atorvastatin Calcium* (Atorvastatin Calcium*) 20 Mg Tablet, 20 MG PO QHS, #30 TAB 06/05/16 Losartan Potassium* (Losartan Potassium*) 50 Mg Tablet, 50 MG PO DAILY, TAB 06/05/16 Allergies Allergies: Coded Allergies: No Known Allergy (Unverified , 06/05/16) PMhx/Soc History of Surgery: No Anesthesia Reaction: Yes Hx Neurological Disorder: No Hx Respiratory Disorders: No Hx Cardiac Disorders: Yes (HTN) Hx Psychiatric Problems: No Hx Miscellaneous Medical Probl: No Hx Alcohol Use: Yes (Occasionally) Hx Substance Use: No Hx Tobacco Use: No Smoking Status: Never smoker FmHx Family History: diabetes Physical Exam Vitals Vital Signs Date Temp Pulse Resp B/P (MAP) Pulse Ox O2 O2 Flow FiO2 Time Delivery Rate 10/04/18 97.6 69 19 175/81 98 08:27 (112) Physical Exam General: Well developed, well nourished, no acute distress Head: Normocephalic, atraumatic. Eyes: EOM intact ENT: Moist mucous membranes Neck: Full ROM Respiratory: No respiratory distress Cardiovascular: Well perfused distally Abdominal: Nondistended : Deferred MSK: The patient's right thumb has a 100% subungual hematoma with mild swelling and contusion noted to the cuticle space. The patient's flexor and extensor tendon function are intact. Compartments are soft. The patient has strong distal radial and ulnar pulses. No significant bony abnormalities. No limited range of motion secondary to pain or swelling. Neurologic: Alert and oriented, moving all extremities, normal speech, steady gait Skin: No rash Psych: Normal mood Procedures/MDM Splint Application Note: Splint type: Aluminum finger splint Extremity: Right thumb Indication: Subungual hematoma The patient was consented at bedside prior to splint application and states understanding of risks, benefits, and alternatives. The patient was neurovascularly intact prior to and status post application of the splint. The patient tolerated the procedure well and there were no complications. MEDICAL DECISION MAKING: The patient's presentation is very consistent with a 100% subungual hematoma. The patient's primary care physician referred him to the emergency room because of a concern for gangrene. However clinically this is not consistent with gangrene but the patient has no clinical signs or symptoms concerning for infectious process. He has a clear traumatic injury that is consistent with hematoma. I do not believe this is infectious in any way. The patient will likely benefit from routine wound care, rest ice elevation and outpatient follow-up. I even discussed the case with my hand specialist, Dr. Clark. She reviewed images and agrees that this is only consistent with a subungual hematoma. She recommends discontinuation of antibiotics and outpatient follow- up. Her clinic referral information was provided to the patient. Patient was immobilized. I do not feel the patient requires x-ray imaging given localized contusion to the tip of the thumb. The patient has no bony abnormalities, subacute injury. Patient is additionally immobilized. X-ray imaging in the setting is unlikely to be helpful. The on-call provider for the referring physician was notified of findings in the emergency room setting and discharge. CONSULTATION: Hand surgery as above DISPOSITION PLAN: The patient does not have an identifiable emergent medical condition that warrants inpatient hospitalization at this time. The patient is deemed safe for discharge with outpatient follow-up. We discussed follow up with the patient's primary care doctor within 24 to 48 hours as needed. We also discussed return to the emergency room for worsening symptoms or worsening condition. Outpatient referral: Hand surgery as needed Discharge Medications: None required Departure Diagnosis: Primary Impression: Subungual hematoma Condition: Stable Patient Instructions: Subungual Hematoma Referrals: NOLVIA CLARK MD [facility] YOU HAVE RECEIVED A MEDICAL SCREENING EXAM AND THE RESULTS INDICATE THAT YOU DO NOT HAVE A CONDITION THAT REQUIRES URGENT TREATMENT IN THE EMERGENCY DEPARTMENT. FURTHER EVALUATION AND TREATMENT OF YOUR CONDITION CAN WAIT UNTIL YOU ARE SEEN IN YOUR DOCTORS OFFICE WITHIN THE NEXT 1-2 DAYS. IT IS YOUR RESPONSIBILITY TO MAKE AN APPOINTMENT FOR FOLOW-UP CARE. IF YOU HAVE A PRIMARY DOCTOR --you should call your primary doctor and schedule an appointment IF YOU DO NOT HAVE A PRIMARY DOCTOR YOU CAN CALL OUR PHYSICIAN REFERRAL HOTLINE AT IF YOU CAN NOT AFFORD TO SEE A PHYSICIAN YOU CAN CHOSE FROM THE FOLLOWING [facility] [address] [facility]. [facility] [address] [facility]. [facility] [address] [facility] [facility] [address] [facility] [facility] [address] [facility]. [facility] [address] [facility]. [facility] YOU HAVE RECEIVED A MEDICAL SCREENING EXAM AND THE RESULTS INDICATE THAT YOU DO NOT HAVE A CONDITION THAT REQUIRES URGENT TREATMENT IN THE EMERGENCY DEPARTMENT. FURTHER EVALUATION AND TREATMENT OF YOUR CONDITION CAN WAIT UNTIL YOU ARE SEEN IN YOUR DOCTORS OFFICE WITHIN THE NEXT 1-2 DAYS. IT IS YOUR RESPONSIBILITY TO MAKE AN APPOINTMENT FOR FOLOW-UP CARE. IF YOU HAVE A PRIMARY DOCTOR --you should call your primary doctor and schedule and appointment IF YOU DO NOT HAVE A PRIMARY DOCTOR YOU CAN CALL OUR PHYSICIAN REFERRAL HOTLINE AT . IF YOU CAN NOT AFFORD TO SEE A PHYSICIAN YOU CAN CHOSE FROM THE FOLLOWING [facility] INSTITUTIONS: [facility] [address] [place] [address] [facility] [address] [place] [address] [facility] [address] [place] [address] [facility] Additional Instructions: You do not need to take antibiotics. Keep ice on the thumb. Follow-up with hand specialist as needed. SHIRA WANG MD Oct 04, 2018 09:54
== END 2018-10-04 09:50 | disposition home or self-care (01) ==
LOC: E/R 08:21
DX: S60.111A Contusion of right thumb with damage to nail, initial encounter (principal); I10 Essential (primary) hypertension; E11.9 Type 2 diabetes mellitus without complications; W23.0XXA Caught, crushed, jammed, or pinched between moving objects, initial encounter; Y92.9 Unspecified place or not applicable; Z79.84 Long term (current) use of oral hypoglycemic drugs
CPT/HCPCS: 29130; Z7502